=== PATIENT | female | born 1950 | race Caucasian/White ===

== ENCOUNTER → 2016-06-30 08:50 | Outpatient (CLI) | payer MEDICARE, MEDICAID ==
[2014-05-08 10:01] VITALS: BMI 39.8
[~2016-06-30 08:50] MED LIST: ADIPEX-P37.5 MG PO; EMLA CREAM 30 G30 G1 TOPICAL; HYDROCHLOROTH12.5 M1 PO; K-DUR20 MEQ PO; PHENERGAN25 M1 PO; ZOFRAN4 MG PO
== END | disposition home or self-care (01) ==
LOC: D.CT 08:50
DX: R10.32 Left lower quadrant pain (principal); K43.2 Incisional hernia without obstruction or gangrene

== ENCOUNTER → 2016-11-16 17:16 | Outpatient (CLI) | payer MEDICARE, MEDICAID ==
[2014-05-08 10:01] VITALS: BMI 39.8
== END | disposition home or self-care (01) ==
LOC: D.MAMMO 09-28 11:15
DX: Z12.31 Encounter for screening mammogram for malignant neoplasm of breast (principal)

== ENCOUNTER 2019-11-07 10:16 | Emergency (ER) | payer MEDICARE, MEDICAID ==
[~2019-11-07] VITALS: Ht 160 cm; Wt 129.5 kg
[2019-11-07 10:22] VITALS: Ht 160 cm; Wt 129.5 kg
[2019-11-07 10:50] LABS: BASOPHILS 0 % (0-2); EOSINOPHILS 1.4 % (0-7); HEMATOCRIT 37.4 % (36.0-48.0); HEMOGLOBIN 12.4 g/dL (12-16); IMMATURE GRANULOCYTES 0.3 % (0-5); LYMPHOCYTES 13.8 % (15-50); MCH 32.2 pg (26.0-34.0); MCHC 33.2 g/dL (31.0-37.0); MCV 97.1 fL (80.0-100.0); MEAN PLATELET VOLUME 11.9 fL (7.4-10.4); MONOCYTES 7.3 % (2-11); NEUTROPHILS 77.2 % (40-80); PLATELET COUNT 92 10x3/uL (130-400); RBC 3.85 10x6/uL (4.00-5.40); RDW 13.6 % (11.5-14.5); WBC 3.5 10x3/uL (4.8-10.8)
[2019-11-07 11:06] LABS: ANION GAP 9.4 mmol/L (8-16); CALCIUM 7.8 mg/dL (8.5-10.1); CARBON DIOXIDE 26.2 mmol/L (21.0-32.0); CREATININE - SERUM 1.1 mg/dL (0.6-1.3); POTASSIUM - SERUM 3.6 mmol/L (3.5-5.1)
[2019-11-07 11:12] LABS: ALBUMIN 2.4 g/dL (3.4-5.0); BILIRUBIN - TOTAL 0.69 mg/dL (0.2-1.3); PROTEIN - SERUM 6.8 g/dL (6.4-8.2)
[2019-11-07] MEDS ORDERED: VIBRAMYCIN 100100 MG PO (11:41)
[2019-11-07 12:13] VITALS: BP 140/69
== END 2019-11-07 12:13 | disposition home or self-care (01) ==
LOC: D.ER 10:16
PROVIDERS: Emergency Medicine
DX: L03.311 Cellulitis of abdominal wall (principal)

== ENCOUNTER 2020-08-18 15:00 | Outpatient (CLI) | payer MEDICARE, MEDICAID ==
[2019-11-07 10:22] VITALS: BMI 50.6
[~2020-08-18 15:00] MED LIST changes: +VIBRAMYCIN 100100 MG PO
== END 2020-08-18 23:59 | disposition home or self-care (01) ==
LOC: D.MAMMO 15:00
PROVIDERS: ATTEND Family Medicine
DX: Z12.31 Encounter for screening mammogram for malignant neoplasm of breast (principal)